=== PATIENT | male | born 1945 | race Caucasian/White ===

== ENCOUNTER 2016-09-15 08:02 | Day surgery (SDC) | payer MEDICARE, BC ==
[~2016-09-15 08:02] MED LIST: ALEVE220 M4 PO; CAL MAG ZINC PO; CELEBREX200 M1 PO; EAC PO; GLUCOSAMINE CH1 EAC8 PO; LISINOPRIL10 M1 PO; MOBIC7.5 M2 PO; PREDNISONE10 M1 PO; VITAMIN B12-FO1 EAC1 PO; VITAMIN D35000 UNI2 PO; ZYTIGA250 M1 PO
[2016-09-15 09:09] LABS: BASO % 0.3 % (0-2); EOS % 0.9 % (0-7); EOSINOPHIL ABSOLUTE COUNT 0.1 tho/cmm (0.0-0.7); HCT-HEMATOCRIT 43.5 % (36.0-53.5); HGB-HEMOGLOBIN 14.2 gm/dl (13.5-17.0); IMMATURE GRANULOCYTES ABSOLUTE 0.02 tho/cmm (0-0.03); IMMATURE GRANULOCYTES PERCENT 0.3 % (0-0.3); LYMPH % 20.6 % (20-45); LYMPH ABSOLUTE COUNT 1.4 tho/cmm (0.8-4.5); MCH (MEAN CORPUSCULAR HGB) 28.2 pg (28.0-32.0); MCHC MEAN CORPUSCULAR HGB CONC 32.6 % (32.0-36.0); MCV (MEAN CELL VOLUME) 86.3 fl (82.0-96.0); MEAN PLATELET VOLUME 9.2 cmc (9.4-12.4); MONO % 10.5 % (0-12); MONOCYTE ABSOLUTE COUNT 0.7 tho/cmm (0.0-1.2); NEUTROPHIL ABSOLUTE COUNT 4.7 tho/cmm (1.6-8.0); NEUTROPHIL-AUTOMATED 4.7 tho/cmm (1.6-8.0); NEUTROPHILS % 67.4 % (40-80); PLATELET COUNT 223 tho/cmm (150-450); RED BLOOD COUNT 5.04 mil/cmm (4.40-5.70); RED CELL DISTRIBUTION WIDTH 14.7 % (12.4-16.4)
[2016-09-15 09:17] LABS: PROTHROMBIN TIME 11.3 SECONDS (9.0-13.6)
== END 2016-09-15 13:10 ==
LOC: US 08:02 → SHSB 08:40
PROVIDERS: Radiology Diagnostic Radiology
PROC: 0FB13ZX Excision of Right Lobe Liver, Percutaneous Approach, Diagnostic (ICD-10-PCS; principal; 2016-09-15)
DX: C78.7 Secondary malignant neoplasm of liver and intrahepatic bile duct (principal); I10 Essential (primary) hypertension; Z85.46 Personal history of malignant neoplasm of prostate; Z90.79 Acquired absence of other genital organ(s); Z98.890 Other specified postprocedural states; Z79.899 Other long term (current) drug therapy
CPT/HCPCS: J3010; J7030